=== PATIENT | female | born 1995 | race Two or more races ===

== ENCOUNTER 2023-04-05 21:34 | Inpatient (IN) | payer OTHER ==
[2023-04-05 21:40] VITALS: BMI 28.4
[2023-04-05] MEDS ORDERED: AMOX TR/POT CLAV 875MG/125MG TABLETS (FP) PO ONE (22:05)
[2023-04-05] MEDS ORDERED: IBUPROFEN 600 MG TABLET (FP) PO ONE ×2 (22:05→22:24)
[2023-04-05] MEDS ORDERED: AMOX TR/POT CLAV 875MG/125MG TABLETS (FP) ONE (22:24)
[2023-04-05] MEDS ORDERED: LACTATED RINGERS SOLUTION 1,000 ML/1,000 ML INFUS.BAG IV SCH ×2 (22:45)
[2023-04-05 23:08] LABS: BASO % 0.3 % (0-2.0); EOS % 0.6 % (0-4.5); HEMATOCRIT 38.2 % (32.4-45.2); LYMPH % 12.4 % (8-40); MCH 28.5 pg (25.7-33.7); MCHC 34.1 g/dl (32.0-36.0); MEAN CELL VOLUME 83.6 fl (80-96); MEAN PLT VOLUME 7.9 fl (7.5-11.1); MONO % 6.2 % (3.8-10.2); NEUT % 80.5 % (42.8-82.8); PLATELET COUNT 323 10^3/uL (134-434); RBC 4.57 M/mm3 (3.60-5.2); RDW 14.9 % (11.6-15.6); WHITE BLOOD COUNT 11.5 K/mm3 (4.0-10.0)
[2023-04-05 23:21] LABS: INR 1.06 (0.83-1.09); PROTHROMBIN TIME (PATIENT) 12.3 SEC (9.7-13.0)
[2023-04-05 23:24] LABS: ACTIVATED PTT 29.7 SECONDS (25.2-36.5)
[2023-04-05 23:26] LABS: POTASSIUM 3.6 mmol/L (3.5-5.1)
[2023-04-05 23:29] LABS: ALBUMIN 3.4 g/dl (3.4-5.0); BLOOD UREA NITROGEN 13.9 mg/dL (7-18)
[2023-04-05 23:31] LABS: LACTIC ACID 3.7 mmol/L (0.4-2.0)
[2023-04-05 23:32] LABS: CREATININE 0.8 mg/dL (0.55-1.3)
[2023-04-05 23:34] LABS: BILIRUBIN,TOTAL 0.7 mg/dL (0.2-1); TOT PROT 7.2 g/dl (6.4-8.2)
[2023-04-06] MEDS ORDERED: AMPICILLIN NA/SULBACTAM NA 3 GM in SODIUM CHLORIDE 100 ML IVPB ONE (01:40)
[2023-04-06] MEDS ORDERED: SODIUM CHLORIDE 1,000 ML IV STA (01:41)
[2023-04-06] MEDS ORDERED: AMPICILLIN NA/SULBACTAM NA 3 GM VIAL ONE (01:48)
[2023-04-06] MEDS ORDERED: HYDROCORTISONE SOD SUCCINATE 100 MG/2 ML VIAL IVPUSH ONE (01:59)
[2023-04-06] MEDS ORDERED: VANCOMYCIN 1,000 MG in DEXTROSE 5%-WATER - 250 ML IVPB ONE (02:09)
[2023-04-06] MEDS ORDERED: HYDROCORTISONE SOD SUCCINATE 100 MG/2 ML VIAL ONE (02:10)
[2023-04-06] MEDS ORDERED: POTASSIUM CHLORIDE TABS 20 MEQ TABLET.ER (FP) PO ONE (02:17)
[2023-04-06] MEDS ORDERED: MAGNESIUM SULF 50% (8.12 MEQ/2 ML-1 GM VIAL) IVPB ONE (02:17)
[2023-04-06] MEDS ORDERED: POTASSIUM CHLORIDE ORAL LIQUID 20 MEQ/15 ML PO ONE (02:23)
[2023-04-06] MEDS ORDERED: PIPERACILLIN/TAZOB 3.375 GM 3.375 GM in DEXTROSE 5%-WATER - 50 ML IVPB ONE (02:24)
[2023-04-06] MEDS ORDERED: PIPERACILLIN/TAZOB 3.375 GM 3.375 GM/50 ML BAG IVPB ONE (02:26)
[2023-04-06] MEDS ORDERED: VANCOMYCIN/WATER FOR INJ (PEG) 1,000 MG/200 ML BAG IVPB ONE (03:08)
[2023-04-06 03:33] LABS: EPI CELLS 5 /uL (0-25.1); HYALINE CASTS 0 /uL (0-3.1); URINE APPEARANCE CLEAR; URINE BACTERIA 8 /uL (0-1359); URINE BILIRUBIN NEGATIVE (NEGATIVE); URINE COLOR YELLOW; URINE GLUCOSE (UA) NEGATIVE (NEGATIVE); URINE KETONE NEGATIVE (NEGATIVE); URINE LEUK ESTERASE NEGATIVE (NEGATIVE); URINE NITRITE NEGATIVE (NEGATIVE); URINE PROTEIN NEGATIVE (NEGATIVE); URINE RBC 6 /uL (0-23.9); URINE UROBILINOGEN 0.2 mg/dL (0.2-1.0); URINE WBC 1 /uL (0-25.8)
[2023-04-06] MEDS ORDERED: LACTATED RINGERS SOLUTION 1000 ML INFUS.BAG IV ONE (04:18)
[2023-04-06] MEDS ORDERED: SODIUM CHLORIDE 1,000 ML IV SCH (04:30)
[2023-04-06] MEDS ORDERED: ACETAMINOPHEN 1000 MG/100 ML BAG IVPB PRN (04:34)
[2023-04-06] MEDS ORDERED: VANCOMYCIN/WATER 1250 MG 1,250 MG/250 ML BAG IVPB SCH ×2 (04:45→16:00)
[2023-04-06] MEDS ORDERED: ENOXAPARIN NA (PORCINE) 40 MG/0.4 ML DISP.SYRIN SQ SCH (10:00)
[2023-04-06] MEDS ORDERED: PIPERACILLIN/TAZOB 3.375 GM 3.375 GM in DEXTROSE 5%-WATER - 50 ML IVPB SCH (10:00)
[2023-04-06 14:34] VITALS: BP 122/52; PULSE 61; RESP 16; TEMP 98
== END 2023-04-06 17:22 | disposition home or self-care (01) | DRG 561 ==
LOC: JERFT 21:34 → OBSVTOIN 04-06 01:41 → INTOOBSV 04-06 01:41 → UNDOADMOB 04-06 01:41 → JERBED 04-06 01:41 → J8W 04-06 03:45 → JERBED 04-06 03:45 → J8W 04-06 03:56 → JERBED 04-06 03:56 → OBSVTOIN 04-06 03:56
PROVIDERS: ADMIT Internal Medicine; ATTEND Nurse Practitioner Acute Care
DX: O85 Puerperal sepsis (principal); I95.9 Hypotension, unspecified; O91.22 Nonpurulent mastitis associated with the puerperium; R50.9 Fever, unspecified
CPT/HCPCS: 36415; 71046-TC-FY; 71260-TC; 72170-TC-FY; 74018-TC-FY; 74177-TC; 80053; 81003; 83605; 85025; 85610; 85730; 86850; 86900; 86901; 87040; 87081; 87086; 93005; 93010; 99285-25